=== PATIENT | female | born 1985 | race Caucasian/White ===

== ENCOUNTER → 2020-01-21 13:12 | Outpatient (BNVA) | payer OTHER, SELFPAY | PROVIDERS: PCP Internal Medicine; Referring Provider Internal Medicine; Visit Provider Obstetrics & Gynecology | DX: Z76.89 Persons encountering health services in other specified circumstances (principal) ==

== ENCOUNTER 2020-03-20 07:28 | Outpatient (REF) | payer OTHER, SELFPAY ==
[2020-03-20 07:46] LABS: MANUAL DIFF FLAG NO
[2020-03-20 07:51] LABS: Basophils Percent Auto 0.4 % (0-2); Eosinophils Absolute Auto 0.1 X10*3/uL (0.0-0.4); Eosinophils Percent Auto 1.9 % (0-4); Hematocrit 39.6 % (37-47); Hemoglobin 13.2 g/dl (12.0-16.0); Lymphocytes Absolute Auto 1.7 X10*3/uL (1.2-4.9); Mean Corpuscular HGB Conc 33.3 g/dl (31.0-35.0); Mean Corpuscular Hemoglobin 29.7 pg (27.0-33.0); Mean Platelet Volume 10.4 fL (9.4-12.3); Monocytes Absolute Auto 0.3 X10*3/uL (0.1-1.2); Neutrophils Absolute Auto 3.3 X10*3/uL (2.0-8.3); Neutrophils Percent Auto 60.7 % (45-73); Platelet Count 247 X10*3/uL (160-400); Red Blood Count 4.45 X10*6/uL (4.20-5.50); White Blood Count 5.4 X10*3/uL (4.8-10.8)
[2020-03-20 08:13] LABS: Alanine Aminotransferase 13 U/L (0-31); Albumin Level 4.6 g/dL (3.5-5.0); Alkaline Phosphatase 52 U/L (39-117); Anion Gap 11 (12-20); Aspartate Amino Transferase 15 U/L (5-31); Bilirubin Total 0.7 mg/dL (0.0-1.0); Blood Urea Nitrogen 8 mg/dL (9-16); Calcium 9.2 mg/dL (8.4-10.2); Carbon Dioxide 29 mmol/L (22-29); Chloride 105 mmol/L (96-108); Cholesterol 232 mg/dL; Estimated Glomerular Filt Rate > 60; Glucose Fasting 102 mg/dL (60-99); HDL Cholesterol 60 mg/dL; LDL Cholesterol Calculated 140 mg/dl; Potassium 4.6 mmol/l (3.3-5.1); Sodium 140 mmol/L (135-145); Total Protein 7.2 g/dL (6.5-8.0); Triglycerides 162 mg/dL
[2020-03-20 08:35] LABS: Free T4 (Free Thyroxine) 1.05 ng/dL (0.71-1.85)
[2020-03-21 06:17] LABS: Thyroid Peroxidase Antibodies 1 IU/mL (<9)
== END 2020-03-20 07:29 | disposition home or self-care (01) ==
LOC: HO.LAB 07:28
PROVIDERS: Visit Provider Internal Medicine
DX: E78.00 Pure hypercholesterolemia, unspecified (principal); E03.9 Hypothyroidism, unspecified
CPT/HCPCS: 36415; 80053; 80061; 84439; 84443; 85025; 86376

== ENCOUNTER → 2020-08-05 11:28 | Outpatient (BNVA) | payer OTHER, SELFPAY | PROVIDERS: PCP Internal Medicine; Visit Provider Obstetrics & Gynecology ==

== ENCOUNTER 2021-03-30 15:00 | Outpatient (REF) | payer OTHER, SELFPAY ==
[2021-04-02 05:51] LABS: HPV mRNA E6/E7 rflx Not Detected (Not Detected)
== END 2021-03-30 15:01 | disposition home or self-care (01) ==
LOC: HO.LAB 15:00
PROVIDERS: Advanced Practice Midwife; Visit Provider Obstetrics & Gynecology
DX: Z01.419 Encounter for gynecological examination (general) (routine) without abnormal findings (principal); Z11.51 Encounter for screening for human papillomavirus (HPV)
CPT/HCPCS: 87624; 88142

== ENCOUNTER → 2021-09-28 08:54 | Outpatient (BNVA) | payer OTHER, SELFPAY | PROVIDERS: PCP Internal Medicine; Visit Provider Advanced Practice Midwife | DX: Z30.432 Encounter for removal of intrauterine contraceptive device (principal); Z31.69 Encounter for other general counseling and advice on procreation | CPT/HCPCS: 58301 ==

== ENCOUNTER 2023-02-08 07:12 | Outpatient (REF) | payer OTHER, SELFPAY ==
[2023-02-08 10:36] LABS: MANUAL DIFF FLAG NO
[2023-02-08 10:52] LABS: Basophils Percent Auto 0.5 % (0-2); Eosinophils Absolute Auto 0.2 X10*3/uL (0.0-0.4); Eosinophils Percent Auto 2.5 % (0-4); Hematocrit 39.3 % (37.0-47.0); Hemoglobin 12.4 g/dl (12.0-16.0); Imm Gran Abs Auto 0.02 X10*3/uL (0.00-0.03); Imm Gran Pct Auto 0.3 % (0.0-0.4); Lymphocytes Absolute Auto 1.7 X10*3/uL (1.2-4.9); Lymphocytes Percent Auto 28.2 % (20-40); Mean Corpuscular HGB Conc 31.6 g/dl (31.0-35.0); Mean Corpuscular Hemoglobin 26.1 pg (27.0-33.0); Mean Corpuscular Volume 82.6 fL (80.0-98.0); Mean Platelet Volume 11.2 fL (9.4-12.3); Monocytes Absolute Auto 0.4 X10*3/uL (0.1-1.2); Monocytes Percent Auto 6.9 % (2-11); Neutrophils Absolute Auto 3.7 x10*3/uL (2.0-8.3); Neutrophils Percent Auto 61.6 % (45-73); Platelet Count 274 X10*3/uL (160-400); Red Blood Count 4.76 X10*6/uL (4.20-5.50); Red Cell Distribution Width 14.5 % (11.0-16.0)
[2023-02-08 12:55] LABS: Alanine Aminotransferase 16 U/L (0-31); Albumin Level 4.3 g/dL (3.5-5.0); Alkaline Phosphatase 89 U/L (39-117); Anion Gap 12 (12-20); Aspartate Amino Transferase 18 U/L (5-31); Bilirubin Total 0.5 mg/dL (0.0-1.0); Blood Urea Nitrogen 13 mg/dL (9-16); Calcium 9.5 mg/dL (8.4-10.2); Carbon Dioxide 26 mmol/L (22-29); Chloride 106 mmol/L (96-108); Cholesterol 232 mg/dL (<200); Estimated Glomerular Filt Rate > 60; Glucose Fasting 94 mg/dL (60-99); HDL Cholesterol 66 mg/dL (>40); LDL Cholesterol Calculated 151 mg/dL (<100); Potassium 4.1 mmol/L (3.3-5.1); Sodium 140 mmol/L (135-145); Thyroid Stimulating Hormone 0.84 uIU/mL (0.32-4.0); Total Protein 7.3 g/dL (6.5-8.0); Triglycerides 76 mg/dL (<150)
== END 2023-02-08 07:13 | disposition home or self-care (01) ==
LOC: HO.WFDLDS 07:12
PROVIDERS: Visit Provider Internal Medicine
DX: I10 Essential (primary) hypertension (principal); E78.00 Pure hypercholesterolemia, unspecified
CPT/HCPCS: 36415; 80053; 80061; 84443; 85025

== ENCOUNTER 2024-11-29 16:49 | Outpatient (AMB) | payer OTHER, BC, SELFPAY ==
--- NOTE | 2024-11-29 08:41 | MHC.PC.OV ---
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 Accompanied by: Self / Same As Patient Allergies No Known Allergies (No Known Allergies*) Allergy (Verified 11/29/24 08:41) Medication List - Last Reconciled 11/29/24 by MOHAN Thompson hydrocortisone 2.5% 1 appl topical TID Tobacco use date assessed: 11/29/24 Dental Screening Dental Screen Date: 11/29/24 Did you have a dental visit in the last 12 months?: No Did you have a dental problem in the last 6 months where you did not have access to dental care?: No HPI HPI Comments History of Present Illness Details The patient is a 39-year-old female with history of preeclampsia presenting to [facility]. She has a history of preeclampsia post- in 2022, managed with antihypertensive medication, and is currently medication-free with no known allergies. The patient reports chronic itching in her ears, previously diagnosed as wax buildup, and has a history of eczema on her eye and inner elbow, though not currently active. She denies regular tobacco use, only occasionally smoking cigars, and reports no auditory, visual, respiratory, or gastrointestinal complaints. Last PAP was done 03/28. She will be due 04/02. She has never had a mammogram. She last had labs in 2022. Patient was informed and verbally consented to the use of an ambient scribe for clinic note documentation during this visit. [facility] Medical History (Updated 11/29/24 @ 18:17 by MOHAN Thompson) Annual physical exam Eczema of both external ears Health care maintenance Family History (Updated 11/29/24 @ 17:06 by Samantha Lowe MA) Mother No problems noted. Father No problems noted. Social History Housing: House Alcohol intake: current Patient Tobacco Use Status: Never used Tobacco e-Cigarette/Vaping Use: Never Used service: No Current occupational status: employed Cognitive needs: No Hearing needs: No Vision needs: Yes (rx glasses) Female Reproductive History Menstrual Age of Menarche: 10 Questionnaire PHQ-9 Over the last 2 weeks, how often have you been bothered by any of the following problems? 1. Little interest or pleasure in doing things: not at all 2. Feeling down, depressed, or hopeless: not at all 3. Trouble falling or staying asleep, or sleeping too much: not at all 4. Feeling tired or having little energy: not at all 5. Poor appetite or overeating: not at all 6. Feeling bad about yourself - or that you are a failure or have let yourself or your family down: not at all 7. Trouble concentrating on things, such as reading the newspaper or watching television: not at all 8. Moving or speaking so slowly that other people could have noticed. Or the opposite - being so fidgety or restless that you have been moving around a lot more than usual: not at all 9. Thoughts that you would be better off or of hurting yourself in some way: not at all Total score: 0 Depression Screening Interpretation: Negative Depression Screening Done: Yes Source: Developed by Drs. Jem Connelly, Rosey Thacker, Cam Brian and colleagues, with an educational jayna from [employer]. Thrive Questionnaire Date Thrive assessed: 11/29/24 I am a: Patient Within the past 12 months, did the food you bought not last and you didn't have the money to get more?: Never true Within the past 12 months, did you worry whether your food would run out before you got money to buy more?: Never true Do you have trouble paying for medicines?: No Do you have trouble getting transportation to medical appointments?: No Do you have trouble paying your heating and electricity bill?: No Do you have trouble taking care of your child, family member or friend?: No Do you have trouble with day-to-day activities such as bathing, preparing meals, shopping, managing finances, etc.?: No Are you currently unemployed and looking for a job?: No Are you interested in more education?: No THRIVE Score: 0 AUDIT C Alcohol Use Questionnaire (AUDIT-C) 1. How often do you have a drink containing alcohol?: Never 3. How often do you have six or more drinks on one occasion?: Never Total Score: 0 ASHLEY-7 AMB Questionnaire ASHLEY-7 Date ASHLEY - 7 assessed: 11/29/24 Feeling nervous, anxious, or on edge: 0 = Not at all Not being able to stop or control worryin = Not at all Worrying too much about different things: 0 = Not at all Trouble relaxin = Not at all Being so restless that it is hard to sit still: 0 = Not at all Becoming easily annoyed or irritable: 0 = Not at all Feeling afraid as if something awful might happen: 0 = Not at all Total ASHLEY-7 score (0-4 normal; 5-9 mild; 10-14 moderate; 15-21 severe): 0 Source: Developed by Drs. Jem Connelly, Rosey Thacker, Cam Brian and colleagues, with an educational jayna from [employer]. Review of Systems Const Details: CONSTITUTIONAL Negative HEAD/NECK Negative EAR/NOSE/MOUTH/THROAT Negative RESPIRATORY Denies chest pain, shortness of breath, or cough CARDIOVASCULAR Denies chest pain GASTROINTESTINAL Denies constipation, diarrhea, or heartburn MUSCULOSKELETAL Negative NEUROLOGICAL Denies back pain, joint pain, numbness, or tingling SKIN Reports itchy and scaly ears, history of eczema on eye and inner elbow PSYCHIATRIC Negative Physical exam (Primary Care) Vital Signs: Last Vital Signs Temp 97.2 F 11/29/24 17:02 Pulse 57 11/29/24 17:02 BP 122/74 11/29/24 17:02 Pulse Ox 99 11/29/24 17:02 Oxygen Delivery Method Room Air 11/29/24 17:02 BMI result Body Mass Index 29.4 GENERAL Well developed, Overweight, in no apparent distress HEENT Head-Normocephalic Eyes- PERRLA, EOMI, Conjuctiva clear, lids WNL Ears- Canals- mild cerumen, erythema and scaling at meatus, TMs WNL Mouth/Throat-No lesions, no erythema, no exudate Neck- Supple, No lymphadenopathy, thyroid WNL RESPIRATORY Normal I:E, Clear to auscultation CARDIOVASCULAR Regular, rate and rhythm, No murmurs or rubs GASTROINTESTINAL Soft, nontender, normal bowel sounds, no masses MUSCULOSKELETAL Back- nontender Joints- no pain swelling or deformity NEUROLOGICAL Gait normal PSYCHIATRIC Oriented to person, place and time Mood and affect WNL Appearance WNL Speech WNL Thought processes WNL Tobacco/Smoking Status: Tobacco use Status Tobacco use date assessed 11/29/24 11/29/24 08:42 Patient Tobacco Use Status Never used Tobacco 11/29/24 08:42 e-Cigarette/Vaping Use Never Used 11/29/24 08:42 PHQ-9: PHQ-9 Score PHQ-9: Total score 0 11/29/24 17:06 Depression Screening Interpretation: Negative Thrive Assessment: Date of Thrive Assessment Date Thrive assessed 11/29/24 11/29/24 08:42 Coding Level of Care Code Established Pt Est Pt Prev Care 40-64y(24271) Patient Type Established Diagnoses Annual physical exam Z00.00 Eczema of both external ears H60.543 Assessment & Plan Assessment & Plan (1) Annual physical exam: Code(s): Z00.00 - Encounter for general adult medical examination without abnormal findings Category: Medical Plan: Will get labs. Will order mammogram. Patient to follow up in 6 months or sooner if symptoms persist or worsen. (2) Eczema of both external ears: Code(s): H60.543 - Acute eczematoid otitis externa, bilateral Category: Medical Plan: The patient will use a prescribed topical cream for eczema management, Hydrocortisone focusing on the ear area. A follow-up is recommended if symptoms persist beyond 10 days to evaluate the need for stronger treatment. Patient to follow up in _ or sooner if symptoms persist or worsen. Plan During the visit, I discussed the importance of mammogram screenings starting at age 40, with frequency adjustments based on family history. We also addressed the management of eczema with a topical cream, advising a follow-up if symptoms persist. Basic blood work was recommended to screen for anemia, liver, kidney, cholesterol, glucose, and thyroid function. The patient was informed about the non-necessity of fasting for these tests. A follow-up appointment was scheduled in six months to review lab results and assess the effectiveness of the eczema treatment. Orders: Orders TSH reflex Free T4 Today Z00.00 - Encounter for general adult medical examination without abnormal findings Complete Blood Count no Diff Today Z00.00 - Encounter for general adult medical examination without abnormal findings Comprehensive Met. Panel Today Z00.00 - Encounter for general adult medical examination without abnormal findings, Z13.1 - Encounter for screening for diabetes mellitus Lipid Panel Today Z00.00 - Encounter for general adult medical examination without abnormal findings, Z13.220 - Encounter for screening for lipoid disorders Vitamin D 25-OH Total Today Z00.00 - Encounter for general adult medical examination without abnormal findings MM screening mammo BI Today Z12.31 - Encounter for screening mammogram for malignant neoplasm of breast Medications: New hydrocortisone 2.5% 1 appl topical TID 30 grams 1RF for eczema ears Patient Instructions: - Apply the prescribed cream to the affected ear areas as directed. - Schedule and attend a mammogram screening as advised. - Complete the recommended blood work at your convenience, no fasting required. - Follow up in six months to review lab results and eczema treatment progress.
[2024-11-29 17:02] VITALS: BP 122/74; PULSE 57; TEMP 36.2; O2SAT 99; BMI 29.4
== END 2024-11-29 17:17 | disposition home or self-care (01) ==
LOC: HO.HMCHD 16:50
PROVIDERS: PCP Internal Medicine; Visit Provider Physician Assistant Medical
DX: Z00.00 Encounter for general adult medical examination without abnormal findings (principal); H60.543 Acute eczematoid otitis externa, bilateral